=== PATIENT | female | born 2000 | race Hispanic/Latino ===

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

== ENCOUNTER 2020-12-24 00:37 | Emergency (ER) | payer MEDICAID, OTHER ==
[~2020-12-24] VITALS: Ht 175.3 cm; Wt 117.5 kg
[2020-12-24] MEDS ORDERED: ACETAMINOPHEN 500 MG TABLET PO ONE (01:15)
[2020-12-24] MEDS ORDERED: DIPHENHYDRAMINE HCL 25 MG CAPSULE PO ONE (01:15)
[2020-12-24] MEDS ORDERED: ACETAMINOPHEN 500 MG TABLET ONE (02:02)
[2020-12-24] MEDS ORDERED: DIPHENHYDRAMINE HCL 25 MG CAPSULE ONE (02:02)
[2020-12-24 02:34] VITALS: BP 118/78
[2020-12-24] MEDS ORDERED: IBUPROFEN 800 MG TAB ONE (03:28)
[2020-12-24] MEDS ORDERED: IBUP-1493 PO (03:36)
[2020-12-24] MEDS ORDERED: LORA-868 PO (03:36)
[2020-12-24] MEDS ORDERED: ALBUHFA IH (03:36)
[2020-12-24] MEDS ORDERED: ACET-2743 PO (03:36)
[2020-12-24 03:38] VITALS: BP 145/68
== END 2020-12-24 03:46 | disposition home or self-care (01) ==
LOC: EDH 01:19
DX: B34.9 Viral infection, unspecified (principal); Z20.822 Contact with and (suspected) exposure to COVID-19; E11.9 Type 2 diabetes mellitus without complications
CPT/HCPCS: 71045; 87635; 87804 ×2; 87880; 99284; C9803; Q0163

== ENCOUNTER 2021-03-12 08:19 | Emergency (ER) | payer OTHER ==
[~2021-03-12] VITALS: Ht 175.3 cm; Wt 117.5 kg
[~2021-03-12 08:19] MED LIST: ACET-2743 PO; ALBUHFA IH; IBUP-1493 PO; LORA-868 PO
[2021-03-12 08:48] VITALS: BP 136/86
[2021-03-12] MEDS ORDERED: FAMOTIDINE 20MG VIAL IV SCH (09:00)
[2021-03-12] MEDS ORDERED: KETOROLAC 30MG VIAL (30MG/ML) IV SCH (09:00)
[2021-03-12] MEDS ORDERED: ONDANSETRON 4MG INJ IVP SCH (09:00)
[2021-03-12 09:30] LABS: HEMATOCRIT 41.3 % (36-48); MEAN CORPUSCULAR HEMOGLOBIN 29.4 pg (27.0-33.0); MEAN CORPUSCULAR HGB CONC 33.7 g/dL (32.0-36.0); MEAN CORPUSCULAR VOLUME 87.5 fL (80-100); PLATELET COUNT (AUTO) 310 K/uL (130-400); RED BLOOD CELL COUNT(AUTO) 4.72 MIL/uL (4.00-5.50); RED CELL DISTRIBUTION WIDTH 13.2 % (11.0-15.5); WHITE BLOOD COUNT (AUTO) 9.4 K/uL (4.8-10.8)
[2021-03-12 09:45] LABS: APPEARANCE,URINE Clear (CLEAR); BILIRUBIN,URINE Negative (NEGATIVE); COLOR,URINE Yellow (YELLOW); GLUCOSE, URINE (UA) Negative (NEGATIVE); KETONES,URINE Trace mg/dL (NEGATIVE); LEUKOCYTE ESTERASE ,URINE Negative (NEGATIVE); NITRATE,URINE Negative (NEGATIVE); OCCULT BLOOD,URINE Negative (NEGATIVE); PH,URINE 5.5 (5.0-8.0); PROTEIN,URINE POS 1+ mg/dL (NEGATIVE)
[2021-03-12 09:51] LABS: BACTERIA,URINE Rare /HPF (None Seen); RBC,URINE 0-1 /HPF (0-1); SQUAMOUS EPITHELIAL CELL,UR Few /HPF (0-2); WBC,URINE 0-1 /HPF (0-1)
[2021-03-12 09:54] LABS: EOSINOPHILS % (MANUAL) 3 % (1-6); LYMPHOCYTES % (MANUAL) 45 % (22-44); MAN.DIFF COMMENT-IMPRESSION MANUAL DIFFERENTIAL; MONOCYTES % (MANUAL) 5 % (2-9); PLATELET MORPHOLOGY COMMENT ADEQUATE; SEGMENTED NEUTROPHILS % 47 % (40-70)
[2021-03-12 10:10] LABS: ALBUMIN 3.7 g/dL (3.5-5.0); CREATININE 0.6 mg/dL (0.5-1.5); POTASSIUM 4.2 mmol/L (3.5-5.1); TOTAL PROTEIN, SERUM 7.8 g/dL (6.0-8.3)
[2021-03-12] MEDS ORDERED: ONDA22I PO (11:17)
[2021-03-12] MEDS ORDERED: FAMO-136 PO (11:17)
== END 2021-03-12 11:31 | disposition home or self-care (01) ==
LOC: EDH 08:19
DX: R11.2 Nausea with vomiting, unspecified (principal); R19.7 Diarrhea, unspecified; R10.32 Left lower quadrant pain; E11.9 Type 2 diabetes mellitus without complications; Z86.16 Personal history of COVID-19; Z79.899 Other long term (current) drug therapy
CPT/HCPCS: 36415; 76857; 80053; 81001; 81025; 83690; 84703; 85025; 96374; 96375; 99284; J1885; J2405; J3490

== ENCOUNTER 2021-09-22 19:16 | Emergency (ER) | payer OTHER ==
[~2021-09-22] VITALS: Ht 175.3 cm; Wt 113.4 kg
[~2021-09-22 19:16] MED LIST changes: +FAMO-136 PO; +ONDA22I PO
[2021-09-22] MEDS ORDERED: 0.9%NACL 1000ML 1,000 ML IV SCH (19:30)
[2021-09-22] MEDS ORDERED: ACETAMINOPHEN 500 MG TABLET PO ONE (19:30)
[2021-09-22] MEDS ORDERED: IBUPROFEN 800 MG TAB PO ONE (19:30)
[2021-09-22] MEDS ORDERED: IBUPROFEN 800 MG TAB ONE (19:37)
[2021-09-22] MEDS ORDERED: ACETAMINOPHEN 500 MG TABLET ONE (19:37)
[2021-09-22 19:40] LABS: APPEARANCE,URINE Clear (CLEAR); BILIRUBIN,URINE Small (NEGATIVE); COLOR,URINE Dark Yellow (YELLOW); GLUCOSE, URINE (UA) Negative (NEGATIVE); KETONES,URINE Trace mg/dL (NEGATIVE); LEUKOCYTE ESTERASE ,URINE Trace (NEGATIVE); NITRATE,URINE Negative (NEGATIVE); OCCULT BLOOD,URINE Nonhemolyzed Trace (NEGATIVE); PH,URINE 5.5 (5.0-8.0); PROTEIN,URINE 300 mg/dL (NEGATIVE)
[2021-09-22 19:43] LABS: BASOPHILS % (AUTO) 0.5 % (0.0-5.0); EOSINOPHILS % (AUTO) 0.6 % (0.0-8.0); HEMATOCRIT 44.4 % (36-48); LYMPHOCYTES % (AUTO) 7.1 % (21.0-51.0); MEAN CORPUSCULAR HEMOGLOBIN 29.4 pg (27.0-33.0); MEAN CORPUSCULAR HGB CONC 33.3 g/dL (32.0-36.0); MEAN CORPUSCULAR VOLUME 88.3 fL (80-100); MONOCYTES % (AUTO) 9.2 % (3.0-13.0); NEUTROPHILS % (AUTO) 81.9 % (40.0-77.0); PLATELET COUNT (AUTO) 274 K/uL (130-400); RED BLOOD CELL COUNT(AUTO) 5.03 MIL/uL (4.00-5.50); RED CELL DISTRIBUTION WIDTH 13.1 % (11.0-15.5); WHITE BLOOD COUNT (AUTO) 8.5 K/uL (4.8-10.8)
[2021-09-22 19:46] LABS: HCG,QUAL RESULT NEGATIVE (NEGATIVE)
[2021-09-22 19:47] LABS: BACTERIA,URINE Rare /HPF (None Seen)
[2021-09-22 19:48] LABS: SQUAMOUS EPITHELIAL CELL,UR Few /HPF (0-2)
[2021-09-22 20:01] LABS: ALBUMIN 4.2 g/dL (3.5-5.0); BILIRUBIN,TOTAL 0.9 mg/dL (0.2-1.0); CREATININE 0.8 mg/dL (0.5-1.5); POTASSIUM 3.9 mmol/L (3.5-5.1)
[2021-09-22 20:21] VITALS: BP 132/85
[2021-09-22] MEDS ORDERED: OSELTAMIVIR PHOSPHATE 75 MG CAP ONE (20:26)
[2021-09-22] MEDS ORDERED: ACET-2247 PO (20:44)
[2021-09-22] MEDS ORDERED: OSEL75 PO (20:44)
[2021-09-22] MEDS ORDERED: IBUP-1552 PO (20:44)
[2021-09-22] MEDS ORDERED: OSELTAMIVIR PHOSPHATE 75 MG CAP PO SCH (21:00)
== END 2021-09-22 21:20 | disposition home or self-care (01) ==
LOC: EDH 19:16
DX: J10.1 Influenza due to other identified influenza virus with other respiratory manifestations (principal); E86.0 Dehydration; Z20.822 Contact with and (suspected) exposure to COVID-19; K21.9 Gastro-esophageal reflux disease without esophagitis; E11.9 Type 2 diabetes mellitus without complications; E66.01 Morbid (severe) obesity due to excess calories; Z68.36 Body mass index [BMI] 36.0-36.9, adult; Z86.16 Personal history of COVID-19; Z79.1 Long term (current) use of non-steroidal anti-inflammatories (NSAID)
CPT/HCPCS: 36415; 71045; 80053; 81001; 81025; 83605; 85025; 87040 ×2; 87635; 87804 ×2; 87880; 96360; 96361; 99284; C9803; J7030

== ENCOUNTER 2022-08-05 20:36 | Emergency (ER) | payer OTHER ==
[~2022-08-05] VITALS: Ht 175.3 cm; Wt 115.7 kg
[~2022-08-05 20:36] MED LIST changes: +ACET-2247 PO; +IBUP-1552 PO; +OSEL75 PO
[2022-08-05 21:02] LABS: APPEARANCE,URINE CLOUDY (CLEAR); BILIRUBIN,URINE NEGATIVE (NEGATIVE); COLOR,URINE YELLOW (YELLOW); GLUCOSE, URINE (UA) NEGATIVE (NEGATIVE); KETONES,URINE NEGATIVE (NEGATIVE); LEUKOCYTE ESTERASE ,URINE NEGATIVE Leu/uL (NEGATIVE); NITRATE,URINE NEGATIVE (NEGATIVE); PROTEIN,URINE 600 mg/dL (NEGATIVE); UROBILINOGEN,URINE 0.2 mg/dL (0.2-1.0)
[2022-08-05] MEDS ORDERED: 0.9%NACL 1000ML 1,000 ML IV ONE ×2 (21:03→21:30)
[2022-08-05] MEDS ORDERED: ONDANSETRON 4MG INJ ONE (21:03)
[2022-08-05 21:04] LABS: HCG,QUALITATIVE URINE NEGATIVE (NEGATIVE)
[2022-08-05 21:06] LABS: BACTERIA,URINE FEW /HPF (None Seen); MUCUS,URINE FEW LPF (None Seen); SQUAMOUS EPITHELIAL CELL,UR MANY /HPF (0-2)
[2022-08-05 21:07] LABS: BASOPHILS % (AUTO) 0.5 % (0.0-5.0); EOSINOPHILS % (AUTO) 0.4 % (0.0-8.0); HEMATOCRIT 46.1 % (36-48); LYMPHOCYTES % (AUTO) 25.5 % (21.0-51.0); MEAN CORPUSCULAR HEMOGLOBIN 30.1 pg (27.0-33.0); MEAN CORPUSCULAR HGB CONC 34.9 g/dL (32.0-36.0); MEAN CORPUSCULAR VOLUME 86.3 fL (79-99); MONOCYTES % (AUTO) 6.8 % (3.0-13.0); NEUTROPHILS % (AUTO) 66.2 % (40.0-77.0); PLATELET COUNT (AUTO) 377 K/uL (130-400); RED BLOOD CELL COUNT(AUTO) 5.34 MIL/uL (4.00-5.50); RED CELL DISTRIBUTION WIDTH 13.1 % (11.0-15.5); WHITE BLOOD COUNT (AUTO) 13.6 K/uL (4.8-10.8)
[2022-08-05 21:17] LABS: CREATININE 0.7 mg/dL (0.5-1.5); POTASSIUM 3.8 mmol/L (3.5-5.1)
[2022-08-05 21:21] LABS: ALBUMIN 4.2 g/dL (3.5-5.0); TOTAL PROTEIN, SERUM 8.9 g/dL (6.0-8.3)
[2022-08-05] MEDS ORDERED: ONDANSETRON 4MG INJ IVP ONE (21:30)
[2022-08-05] MEDS ORDERED: IBUP-2070 PO (23:21)
[2022-08-05] MEDS ORDERED: ONDA4TAB10 PO (23:21)
[2022-08-05 23:31] VITALS: BP 129/81
== END 2022-08-05 23:39 | disposition home or self-care (01) ==
LOC: EDH 20:36
DX: R11.2 Nausea with vomiting, unspecified (principal); F10.10 Alcohol abuse, uncomplicated; E66.9 Obesity, unspecified; Z79.899 Other long term (current) drug therapy
CPT/HCPCS: 99285; 96374; 76830; 96361; 80053; 83690; 85025; 87088; 81001; 81025; 36415; J7030; J2405

== ENCOUNTER 2023-09-12 12:18 | Emergency (ER) | payer OTHER ==
[~2023-09-12] VITALS: Ht 175.3 cm; Wt 116.6 kg
[~2023-09-12 12:18] MED LIST changes: +IBUP-2070 PO; +ONDA4TAB10 PO
[2023-09-12] MEDS: ONDANSETRON ODT 4MG TAB SL ONE (13:34)
[2023-09-12] MEDS: ACETAMINOPHEN 500 MG TABLET PO ONE (13:36)
[2023-09-12] MEDS ORDERED: ONDA4TAB10 PO (15:44)
[2023-09-12 16:15] VITALS: BP 127/76; PULSE 94; RESP 17; O2SAT 98
== END 2023-09-12 16:16 | disposition home or self-care (01) ==
LOC: EDH 12:18
DX: S06.0XAA Concussion with loss of consciousness status unknown, initial encounter (principal); S00.03XA Contusion of scalp, initial encounter; Z79.899 Other long term (current) drug therapy; Z98.890 Other specified postprocedural states; X58.XXXA Exposure to other specified factors, initial encounter; Y93.89 Activity, other specified; Y92.89 Other specified places as the place of occurrence of the external cause; Y99.8 Other external cause status
CPT/HCPCS: 70450; 81025

== ENCOUNTER 2024-09-05 17:07 | Emergency (ER) | payer BC, MEDICAID ==
[~2024-09-05] VITALS: Ht 175.3 cm; Wt 115.7 kg
[~2024-09-05 17:07] MED LIST changes: +ONDA-243 PO; -ONDA4TAB10 PO
--- NOTE | 2024-09-05 17:09 | NUR ---
COVID, FLU AND STREP COLLECTED AND SENT FOR ANY FURTHER ORDERS
[2024-09-05 17:39] LABS: SARS-CoV-2, RNA, NAAT NEGATIVE SARS CoV-2 (NEGATIVE)
[2024-09-05 17:44] LABS: INFLUENZA TYPE A Negative For Type A (NEGATIVE); INFLUENZA TYPE B Negative For Type B (NEGATIVE)
[2024-09-05] MEDS ORDERED: FLUT16H NS (17:59)
[2024-09-05] MEDS ORDERED: LORA10TA7 PO (17:59)
--- NOTE | 2024-09-05 17:59 | ERN ---
General Chief Complaint: Flu Symptoms Stated Complaint: RUNNY NOSE, FEVER, CONGESTION Time Seen by MD: 17:09 Source: patient History of Present Illness Initial Comments Patient is a 24-year-old female coming in to be evaluated for URI symptoms. Per patient he has been she has been having these symptoms for one week. Patient was recently seen and was started on antibiotics for strep pharyngitis. Patient was currently still taking antibiotics. Allergies: Coded Allergies: No Known Drug Allergies (Unverified Allergy, Unknown, 12/24/20) Home Meds Active Scripts Ondansetron (Ondansetron Odt) 4 Mg Tab.rapdis, 4 MG PO Q6HPRN PRN for nausea, #16 TAB 0 Refills Prov:JOSE ALFREDO HILTON COMMUNITY HEALTH ADVISOR 09/12/23 Ibuprofen (Ibuprofen) 600 Mg Tablet, 600 MG PO Q6H PRN for PAIN, #20 TAB Prov:SYDNIE PHILIP V SQL DATABASE PROGRAMMER 08/05/22 Ondansetron (Ondansetron Odt) 4 Mg Tab.rapdis, 4 MG PO Q8H, #6 TAB Prov:SYDNIE PHILIP V SQL DATABASE PROGRAMMER 08/05/22 Acetaminophen (Tylenol) 325 Mg Tablet, 650 MG PO Q4HPRN, #50 TAB Prov:NOAH GILMORE 09/22/21 Ibuprofen (Ibu) 400 Mg Tablet, 800 MG PO TIDMEALS, #60 TAB Prov:NOAH GILMORE 09/22/21 Oseltamivir Phosphate (Tamiflu) 75 Mg Cap, 75 MG PO BID for 5 Days, #10 CAP Prov:NOAH GILMORE 09/22/21 Famotidine (Pepcid) 20 Mg Tablet, 20 MG PO BID, #14 TAB Prov:KARTHIK WAITE MD 03/12/21 Ondansetron HCl (Zofran) 2 Mg/Ml Inj, 4 MG PO Q8H PRN for nausea, #10 TAB Prov:KARTHIK WAITE MD 03/12/21 Albuterol Sulfate (Ventolin Hfa/Proventil Hfa/Proair Hfa) 90 Mcg/Puff Puff, 2 PUFF IH Q4H PRN for cough/congestion, #1 INH Prov:SAMUEL ISBELL MD 12/24/20 Loratadine/Pseudoephedrine (Claritin-D 24 Hour Tablet) 1 Each Tab.er.24h, 1 EACH PO DAILY for 10 Days, #10 TAB Prov:SAMUEL ISBELL MD 12/24/20 Ibuprofen (Motrin/Advil) 800 Mg Tab, 800 MG PO Q6H for fever/pain, #12 TAB Prov:SAMUEL ISBELL MD 12/24/20 Acetaminophen (Tylenol Extra Strength) 500 Mg Tablet, 1000 MG PO Q6H PRN for fever/pain, #15 TAB Prov:SAMUEL ISBELL MD 12/24/20 Past Medical History Past Medical History: Other Medical History Other: COVID IN 10/20, 12/20, obesity Past Surgical History: Other Surgical History Other: CYST REMOVAL FROM LEFT EYE Family History Family History: Negative Social History Social History: Negative Female( History) : 0 ROS Dictation CONSTITUTIONAL: No chills, no fever, no weakness, no diaphoresis, no malaise. HEAD/FACE: No signs of trauma. EENT: No eye pain, no blurred vision, no tearing, no double vision, no ear pain, no ear discharge, no nose pain, no nasal congestion, no throat pain, no throat swelling, no mouth pain. RESPIRATORY: cough, no orthopnea, no SOB, no stridor, no wheezing. CARDIOVASCULAR: No chest pain, no edema, no palpitations, no syncope. GASTROINTESTINAL/ABDOMINAL: No abdominal pain, no constipation, no diarrhea, n o nausea, no vomiting. GENITOURINARY: No abnormal discharge, no dysuria, no frequent urination, no hematuria. No complaints of pain in the genitals. MUSCULOSKELETAL: No back pain, no gout, no joint pain, no joint swelling, no muscle pain, no muscle stiffness, no neck pain. INTEGUMENTARY: No change in color, no change in hair/nails, no dryness, no lesion, no lumps, no rash. NEUROLOGICAL/PSYCH: No anxiety, not depressed, no emotional problem, no headache, no numbness, no pre-existing deficit, no history of seizures, no tremors, no weakness. HEMATOLOGIC/LYMPHATIC: Not anemic, no history of blood clots, no apparent bleeding, no bruising, glands not swollen. All Systems Negative, Except as Noted. Physical Exam Physical Exam Dictation VITAL SIGNS: Reviewed. GENERAL APPEARANCE: Alert, oriented x3, no acute distress, obese. HEAD AND FACE: Non-traumatic. EYES: PERRL, pink conjunctivas, eyelid no trauma, anterior chamber clear. EARS: Pinnas intact and no signs of trauma or erythema. Ear canals clear and no discharge. TMs no erythema. NOSE: No discharge, no bleeding. OROPHARYNX: Mouth normal, teeth no caries, tongue pink. Pharynx clear, no erythema. Tonsils no exudates, no abscesses noted. Mucous membrane moist. NECK: Supple, non-tender, no thyromegaly, no masses, no JVD, no bruits. BREAST: Deferred. CHEST: No tenderness, no crepitus, no paradoxical movement, no retractions. LUNGS: Clear, well-ventilated, symmetric, no rales, no wheezing, no rhonchi, no stridor, good breath sounds bilaterally. HEART: Regular rate, regular rhythm, no murmur, no gallops. VASCULAR: No peripheral edema. ABDOMEN: Soft, positive bowel sounds, nondistended, no guarding, nontender, no rebound, no masses no hepatomegaly, no splenomegaly, no Hoffman's sign, no hernias. RECTAL: Deferred. GENITAL: Deferred. NEUROLOGICAL: Normal speech, gross motor function intact, gross sensory function intact. MUSCULOSKELETAL: Neck nontender, full range of motion, back nontender, full range of motion. EXTREMITIES: Nontender, full range of motion. SKIN: Color pink, dry, no turgor, no rash, no lacerations, no abrasions, no contusions. LYMPHATICS: Deferred. Results Laboratory and Microbiology Lab and Micro Result Laboratory Tests Test 09/05/24 17:10 Influenza Type A Antigen Negative For Type A Influenza Type B Antigen Negative For Type B SARS-CoV-2, RNA, NAAT NEGATIVE SARS CoV-2 MDM MDM: Differential diagnosis: URI, COVID, flu, strep In his is a 24-year-old female coming in to be evaluated for URI symptoms. Patient states she was seen before in the ER and diagnosed with strep pharyngitis she was still taking antibiotics. I advised her appropriate follow up with PCP swabs were negative for COVID and flu. Patient will be discharged in stable condition. ED Course Orders Procedure Category Date Status Time Influenza Type A & B, LAB 09/05/24 Complete Rapid 17:20 Covid Rna Naat LAB 09/05/24 Complete 17:20 Vital Signs Date Time Temp Pulse Resp B/P (MAP) Pulse Ox O2 Delivery O2 Flow Rate FiO2 09/05/24 17:09 97.9 69 20 150/99 99 Room Air DX & DISP Disposition: Discharge Departure Impression: Primary Impression: Viral URI Condition: Stable Scripts Loratadine (Loratadine) 10 Mg Tablet 1 TAB PO DAILY for allergy symptoms for 30 Days, #30 TAB 0 Refills Prov: KELLI KOO MD 09/05/24 Fluticasone Propionate (Flonase Nasal [place]) 50 Mcg/Actuation [place] 2 SPRAY NS DAILY, #16 GM 0 Refills Prov: KELLI KOO MD 09/05/24 Additional Instructions: FOLLOW-UP WITH PRIMARY CARE PROVIDER IN 1 TO 2 DAYS. TAKE MEDICATIONS DIRECTED HERE IN THE EMERGENCY ROOM. OKAY TO CONTINUE HOME MEDICATIONS UNLESS OTHERWISE DISCUSSED DURING YOUR VISIT IN THE EMERGENCY ROOM TODAY. RETURN TO YOUR NEAREST EMERGENCY ROOM IF SYMPTOMS WORSEN OR IF THERE IS NO IMPROVEMENT. CALL 911 IF YOU NEED IMMEDIATE ASSISTANCE. TAKE TYLENOL [id number] NEEDED AND IF NO CONTRAINDICATIONS ARE PRESENT. INCREASE ORAL HYDRATION. A WOUND CULTURE OR URINE CULTURE WAS ORDERED HERE IN THE EMERGENCY ROOM DEPARTMENT PLEASE FOLLOW-UP WITH PRIMARY CARE PROVIDER AND ADVISE THEM TO GET REPEAT PORTS FROM OUR FACILITY. IF YOU HAD ANY JESSICA WRAP/SPLINTS THAT WERE APPLIED HERE, PLEASE DO NOT REMOVE THEM UNTIL YOU SEE YOUR PRIMARY CARE OR SPECIALTY. Referrals: Referrals: JONH MOMIN DO (PCP) Time of Disposition: 17:58 KELLI KOO MD Sep 05, 2024 17:59
[2024-09-05 18:07] VITALS: BP 141/93; PULSE 70; RESP 20; TEMP 97.9; O2SAT 99
== END 2024-09-05 18:16 | disposition home or self-care (01) ==
LOC: EDH 17:07
DX: J06.9 Acute upper respiratory infection, unspecified (principal); B97.89 Other viral agents as the cause of diseases classified elsewhere; E66.9 Obesity, unspecified; Z20.822 Contact with and (suspected) exposure to COVID-19; Z79.899 Other long term (current) drug therapy; Z98.890 Other specified postprocedural states
CPT/HCPCS: 87635; 87804; 99283

== ENCOUNTER 2025-03-25 15:29 | Emergency (ER) | payer BC, MEDICAID ==
[~2025-03-25] VITALS: Ht 175.3 cm; Wt 104.3 kg
[~2025-03-25 15:29] MED LIST changes: +FLUT16H NS; +IBUP-1492 PO; -IBUP-2070 PO; +LORA10TA7 PO
[2025-03-25 16:25] VITALS: PULSE 100; TEMP 98.4
[2025-03-25] MEDS: BENZONATATE 100 MG CAPSULE PO STA (16:43)
--- NOTE | 2025-03-25 16:43 | NUR ---
pt refused to give urine for test but demands to get xray of chest , pt signed paper that she does not want test , advised aroldo national sales associate
[2025-03-25] MEDS ORDERED: BENZ200C53 PO (17:21)
--- NOTE | 2025-03-25 17:21 | ERN ---
ED Note History of Present Illness Stated Complaint: WHEEZING Chief Complaint: Other Problems Time Seen by MD: 15:33 Time Seen by Midlevel: 15:36 Dictation: 25-year-old female with no past medical history coming in complaining of nonproductive cough for two weeks, states she is you to know if she has pneumonia because two months ago she had pneumonia. Denies any other complain ts. Denies any fever, nausea or vomiting or diarrhea. Denies any chest pain chest discomfort or shortness a breath. Allergies: Coded Allergies: No Known Drug Allergies (Unverified Allergy, Unknown, 12/24/20) Home Meds Active Scripts Benzonatate (Benzonatate) 200 Mg Capsule, 1 CAP PO TIDP PRN for cough for 7 Days, #21 CAP 0 Refills Prov:BARRY WALTERS CONDITIONING MACHINE OPERATOR 03/25/25 Loratadine (Loratadine) 10 Mg Tablet, 1 TAB PO DAILY for allergy symptoms for 30 Days, #30 TAB 0 Refills Prov:KELLI KOO MD 09/05/24 Fluticasone Propionate (Flonase Nasal [place]) 50 Mcg/Actuation [place], 2 SPRAY NS DAILY, #16 GM 0 Refills Prov:KELLI KOO MD 09/05/24 Ondansetron (Ondansetron Odt) 4 Mg Tab.rapdis, 4 MG PO Q6HPRN PRN for nausea, #16 TAB 0 Refills Prov:JOSE ALFREDO HILTON CONDITIONING MACHINE OPERATOR 09/12/23 Ibuprofen (Ibuprofen) 600 Mg Tablet, 600 MG PO Q6H PRN for PAIN, #20 TAB Prov:SYDNIE PHILIP V FOSTER CARE WORKER 08/05/22 Ondansetron (Ondansetron Odt) 4 Mg Tab.rapdis, 4 MG PO Q8H, #6 TAB Prov:SYDNIE PHILIP V FOSTER CARE WORKER 08/05/22 Acetaminophen (Tylenol) 325 Mg Tablet, 650 MG PO Q4HPRN, #50 TAB Prov:NOAH GILMORE 09/22/21 Ibuprofen (Ibu) 400 Mg Tablet, 800 MG PO TIDMEALS, #60 TAB Prov:NOAH GILMORE 09/22/21 Oseltamivir Phosphate (Tamiflu) 75 Mg Cap, 75 MG PO BID for 5 Days, #10 CAP Prov:NOAH GILMORE 09/22/21 Famotidine (Pepcid) 20 Mg Tablet, 20 MG PO BID, #14 TAB Prov:KARTHIK WAITE MD 03/12/21 Ondansetron HCl (Zofran) 2 Mg/Ml Inj, 4 MG PO Q8H PRN for nausea, #10 TAB Prov:KARTHIK WAITE MD 03/12/21 Albuterol Sulfate (Ventolin Hfa/Proventil Hfa/Proair Hfa) 90 Mcg/Puff Puff, 2 PUFF IH Q4H PRN for cough/congestion, #1 INH Prov:SAMUEL ISBELL MD 12/24/20 Loratadine/Pseudoephedrine (Claritin-D 24 Hour Tablet) 1 Each Tab.er.24h, 1 EACH PO DAILY for 10 Days, #10 TAB Prov:SAMUEL ISBELL MD 12/24/20 Ibuprofen (Motrin/Advil) 800 Mg Tab, 800 MG PO Q6H for fever/pain, #12 TAB Prov:SAMUEL ISBELL MD 12/24/20 Acetaminophen (Tylenol Extra Strength) 500 Mg Tablet, 1000 MG PO Q6H PRN for fever/pain, #15 TAB Prov:SAMUEL ISBELL MD 12/24/20 Past Medical History Past Medical History: Anxiety, Depression Additional Past Medical Hx: COVID IN 10/20, 12/20, obesity Surgical History: None Surgical History Other: CYST REMOVAL FROM LEFT EYE Family History: Negative Social History: Negative : 0 Review of System Dictation Constitutional: Negative for fever,chills, and weight loss Eyes: Negative for injury, pain,redness, and discharge ENT: Negative for injury,pain or swelling Cardiovascular: Negative for chest pain, palpitations, and edema Respiratory: Complaining of cough, negative has a breath negative wheezing Abdomen/GI: Negative for abdominal pain, nausea, vomiting, diarrhea, and constipation Back: Negative for injury and pain : Negative for injury, bleeding and discharge MS/Extremity: Negative for injury and deformity Skin: Negative for rash, and discoloration Neuro: Negative for headache, weakness, numbness, tingling, and seizure Psych: Negative for suicide ideation, homicidal ideation, and hallucinations Review of Systems: was completed Initial Vital Sign VS Vital Signs Date Time Temp Pulse Resp B/P (MAP) Pulse Ox O2 Delivery O2 Flow Rate FiO2 03/25/25 15:31 98.2 98 18 159/65 98 Room Air 03/25/25 16:25 0 21 Physical Exam Dictation General: awake, alert, NAD Head/Face: Normocephalic, atraumatic Eyes: PERRL, EOMI, vision at baseline ENT: oral cavity clear, TMs clear, no signs of infection Neck: Trachea midline, supple, no nuchal rigidity Cardiovascular: RRR, normal S1/S2, No MRGs, no JVD Respiratory: CTAB, no respiratory distress, No rales or wheezes Abdomen: Soft, non-tender, non-distended, normal bowel sounds, no guarding or rebound. Skin: Warm, dry, normal turgor, no rash MS/Extremity: Pulses equal, no cyanosis, neurovascular intact, FROM Neuro: COAx4, GCS 15, strength 5/5, CN 2-12 intact, normal cerebellar exam, normal gait, Psych: Normal behavior, mood, and affect normal ED Course ED Course Orders Procedure Category Date Status Time Chest 1vw RAD 03/25/25 Resulted 15:57 Benzonatate 100 Mg PHA 03/25/25 Complete Capsule (Tessalon 100 15:57 Current Medications Medications (Trade) Dose Ordered Sig/[place] Route PRN Reason Start Time Stop Time Status Last Admin Dose Admin Benzonatate (Tessalon 100mg Caps) 200 mg ONCE STAT PO 03/25/25 15:57 03/25/25 15:59 DC 03/25/25 16:43 Vital Signs Date Time Temp Pulse Resp B/P (MAP) Pulse Ox O2 Delivery O2 Flow Rate FiO2 03/25/25 17:32 17 138/86 98 Room Air* 0 21 03/25/25 16:25 98.4 100 20 138/86 96 Room Air* 0 21 03/25/25 15:31 98.2 98 18 159/65 98 Room Air Medical Decision Making MDM MDM: 25-year-old female with no past medical history coming in complaining of nonproductive cough for two weeks, states he is you to know if he has pneumonia because two months ago she had pneumonia. Denies any other complaints. Denies any fever, nausea or vomiting or diarrhea. Denies any chest pain chest discomfort or shortness a breath. Chest x-ray shows only right elevated hemidiaphragm which was present two months ago when she was seen here, no pneumonia. Discussed with the patient's more than likely has bronchitis. We will prescribe medication for cough and happened he follow up outpatient with her PCP. Upon discharge when discussing patient's people work I. Out the results of the chest x-ray and took it through the patient. Patient is a episodes states that last time she has a same symptoms he was told by stanley Merrill that she did not have any pneumonia, couple of days later she presented to another facility and was told she had pneumonia. Patient states if she gets worse in the next 2-3 days she will come back and " mario the fuck out of you guys". Patient has been placed in his be to admit. Notified charge nurse. Differential diagnosis: Pneumonia, bronchitis Rationale: Tests considered and ordered secondary to shared decision making include: Previous outside records reviewed: Old ER visits. Risk of complication and/or morbidity or mortality of patient management: None Medications-Per medication reconciliation Need for hospitalization: Patient does not meet criteria for hospitalization. Need for emergency major/minor surgery: No There are no social concerns with this patient. Prescription drug management Prescriptions will include symptomatic care Patient's prior external medical records from other ER visits were reviewed by me as indicated. Prior testing and results from previous visits were reviewed. Prior tests were taken into account with medical decision making and resource utilization, independent historian/historians were used to obtain complete medical history. I independently interpreted the test that were performed, results were reviewed by me and considered findings on radiology if ordered. Medical management and examination interpretation discussions were had by me with other qualified healthcare professionals as indicated for the patient's care. DX & DISP Disposition: Discharge Departure Impression: Primary Impression: Bronchitis Condition: Stable Scripts Benzonatate (Benzonatate) 200 Mg Capsule 1 CAP PO TIDP PRN for cough for 7 Days, #21 CAP 0 Refills Prov: BARRY WALTERS NP 03/25/25 Additional Instructions: Take medications has been described. Follow up with your primary doctor. Return to the ER if you have worsening symptoms. Referrals: JONH MOMIN DO (PCP) Time of Disposition: 17:20 I have reviewed the case, and I agree with, Diagnosis and Plan BARRY WALTERS NP Mar 25, 2025 17:21 TERENCE JAY DO Mar 25, 2025 17:54
--- NOTE | 2025-03-25 17:23 | HMCIMG ---
EXAM: CR Chest, 1 View. CLINICAL HISTORY: cough COMPARISON: 12/06/2024 FINDINGS: LUNGS: There is no mass, infiltrate, or acute pulmonary abnormality. PLEURAL SPACES: No pleural effusion or pneumothorax. MEDIASTINUM: Cardiac size and mediastinal contours within normal limits. persistent elevation of the right christine-diaphragm. BONES: No aggressive appearing osseous lesion seen. IMPRESSION: 1. No acute cardiopulmonary findings. 2. Persistent elevation of the right hemidiaphragm. /[place]
[2025-03-25 17:32] VITALS: BP 138/86; RESP 17; O2SAT 98
--- NOTE | 2025-03-25 17:43 | NUR ---
PT IN HALLWAY CRUSING ABOUT HOW" NO ONE HAS SEEN HER OR GIVEN HER FUCKING RESULTS BECAUSE THE HOSPITAL HAS SO MANY FUCKING NURSES AND DIRECTOR ECONOMIC AND DOCTORS" . ASKED PT TO NOT USE VOLGER LANGUAGE AND THAT I WOULD GET THE PROVIDER TO TALK TO HER . PT STATED " I JUST NEED MY FUCKIN RESULTS" ADVISE HER TO TAKE A SEAT AND WE WOULD HAVE DISCHARGE PAPER WORK AND PROVIDER. PT CONTINUE TO YELL , ADVISED DIRECTOR ECONOMIC AND CHARGE NURSE ABOUT PT .
== END 2025-03-25 17:51 | disposition home or self-care (01) ==
LOC: EDH 15:29
DX: J40 Bronchitis, not specified as acute or chronic (principal); Z79.899 Other long term (current) drug therapy; Z86.16 Personal history of COVID-19
CPT/HCPCS: 71045; 99283